=== PATIENT | female | born 1940 | race Caucasian/White ===

== ENCOUNTER → 2017-02-24 | Outpatient (CLI) | payer OTHER, BC ==
[~2017-02-24] MED LIST: ALLOPURINOL300 MG PO; AMLODIPINE BESYL5 MG PO; ATORVASTATIN CA10 MG PO; FLAGYL250 MG PO; LO-DOSE ASPIRIN81 M1 PO; MAGNESIUM400 M1 PO; METFORMIN HCL1000 M3 PO; QUINAPRIL HCL20 MG PO; TOPROL XL50 MG PO
[2017-02-24 09:17] LABS: POINT-OF-CARE METER ID UU14174212
== END | disposition home or self-care (01) ==
LOC: OPR 08:16 → EDSTATUS 09:00 → OPR 09:00
PROVIDERS: Internal Medicine
PROC: 0JB83ZX Excision of Abdomen Subcutaneous Tissue and Fascia, Percutaneous Approach, Diagnostic (ICD-10-PCS; principal; 2017-02-24)
DX: D48.7 Neoplasm of uncertain behavior of other specified sites (principal); Z85.828 Personal history of other malignant neoplasm of skin; E66.01 Morbid (severe) obesity due to excess calories; Z68.41 Body mass index [BMI] 40.0-44.9, adult; I10 Essential (primary) hypertension; M48.062 Spinal stenosis, lumbar region with neurogenic claudication; E11.65 Type 2 diabetes mellitus with hyperglycemia; E27.9 Disorder of adrenal gland, unspecified; R91.1 Solitary pulmonary nodule; K21.9 Gastro-esophageal reflux disease without esophagitis; E53.8 Deficiency of other specified B group vitamins; Z90.710 Acquired absence of both cervix and uterus; Z80.0 Family history of malignant neoplasm of digestive organs; Z82.49 Family history of ischemic heart disease and other diseases of the circulatory system; Z83.3 Family history of diabetes mellitus; Z88.2 Allergy status to sulfonamides; Z88.8 Allergy status to other drugs, medicaments and biological substances
CPT/HCPCS: 77012; 82948; 88305; J3010